=== PATIENT | male | born 1990 | race Caucasian/White ===

== ENCOUNTER 2020-08-30 02:45 | Emergency (ER) | payer SELFPAY ==
[~2020-08-30] VITALS: Ht 175.3 cm; Wt 63.6 kg
[2020-08-30 02:47] VITALS: Ht 175.3 cm; Wt 63.6 kg
[2020-08-30 03:16] LABS: BASOPHILS 0.3 % (0-2); EOSINOPHILS 2.3 % (0-7); HEMOGLOBIN 14.7 g/dL (13.5-17.5); LYMPHOCYTES 24.5 % (15-50); MCH 33.2 pg (26.0-34.0); MCV 94.8 fL (80.0-100.0); MONOCYTES 5.4 % (2-11); NEUTROPHILS 67.5 % (40-80); PLATELET COUNT 262 10x3/uL (130-400); RBC 4.43 10x6/uL (4.20-6.10); RDW 12.6 % (11.5-14.5); WBC 6.6 10x3/uL (4.8-10.8)
[2020-08-30 03:25] LABS: CALC OSMOLALITY 283 mosm/kg (275-300); CALCIUM 9.5 mg/dL (8.5-10.1); CARBON DIOXIDE 23.9 mmol/L (21.0-32.0); CHLORIDE - SERUM 105 mmol/L (98-107); CREATININE - SERUM 1.2 mg/dL (0.6-1.3); GLUCOSE 88 mg/dL (74-106); POTASSIUM - SERUM 3.6 mmol/L (3.5-5.1); SODIUM 141 mmol/L (136-145); UREA NITROGEN 23 mg/dL (7-18); eGFR NON AFRICAN AMERICAN 75 mL/min (90-120)
[2020-08-30 03:31] LABS: ALBUMIN 4.3 g/dL (3.4-5.0); ALKALINE PHOSPHATASE 51 U/L (30-120); ALT (SGPT) 25 U/L (10-68); BILIRUBIN - TOTAL 0.46 mg/dL (0.2-1.3); C-REACTIVE PROTEIN 0.5 mg/dL (0.0-0.9); PROTEIN - SERUM 7.8 g/dL (6.4-8.2)
[2020-08-30 04:25] VITALS: BP 129/66
== END 2020-08-30 04:18 | disposition home or self-care (01) ==
LOC: D.ER 02:45
PROVIDERS: Family Medicine
DX: R41.82 Altered mental status, unspecified (principal)